=== PATIENT | female | born 1990 | race Caucasian/White ===

== ENCOUNTER 2018-01-20 16:52 | Inpatient (IN) | payer OTHER ==
--- NOTE | 2018-01-20 17:05 | EDPHY ---
H & P Stated Complaint: pt has blood clot in liver/months of abd pain nausea Time Seen by Provider: 01/20/18 16:54 HPI/ROS: CHIEF COMPLAINT: Acute on chronic abdominal pain HISTORY OF PRESENT ILLNESS: The patient presents the ED with complaints of several months of abdominal pain. The patient saw her primary care provider who ordered a CT scan which demonstrated thrombus throughout the left portal system. The case was briefly discussed with the oncologist who recommended the patient be anticoagulated with some consideration for in-patient hospitalization. The patient reports that her pain is acutely worsened over past week. She is having quite a bit of postprandial pain. She reports associated nausea. She denies prior history of PE or DVT. The patient is currently on control pills. She does not smoke. REVIEW OF SYSTEMS: A comprehensive 10 point review of systems is otherwise negative aside from elements mentioned in the history of present illness. Source: Patient Exam Limitations: No limitations - Personal History LMP (Females 10-55): 8-14 Days Ago Current Tetanus/Diphtheria Vaccine: Yes Tetanus Vaccine Date: 2014 - Medical/Surgical History Hx Asthma: No Hx Chronic Respiratory Disease: No Hx Diabetes: No Hx Cardiac Disease: No Hx Renal Disease: No Hx Cirrhosis: No Hx Alcoholism: No Hx HIV/AIDS: No Hx Splenectomy or Spleen Trauma: No Other PMH: fibroadenoma, R knee surgery - Social History Smoking Status: Never smoked - Physical Exam Exam: General Appearance: Alert, no distress Eyes: Pupils equal and round no pallor or injection ENT, Mouth: Mucous membranes moist Respiratory: There are no retractions, lungs are clear to auscultation Cardiovascular: Regular rate and rhythm Gastrointestinal: Abdomen is soft and nontender, no masses, bowel sounds normal Neurological: 5/5 strength all 4 extremities Skin: Warm and dry, no rashes Musculoskeletal: Neck is supple nontender Extremities: symmetrical, full range of motion Constitutional: Initial Vital Signs Temperature (C) 37.3 C 01/20/18 16:57 Heart Rate 99 01/20/18 16:57 Respiratory Rate 18 01/20/18 16:57 Blood Pressure 142/94 H 01/20/18 16:57 O2 Sat (%) 96 01/20/18 16:57 O2 Delivery Mode Room Air Allergies/Adverse Reactions: No Known Allergies Allergy (Verified 01/20/18 16:55) Home Medications: Medication Instructions Recorded Cholecalciferol Vit D3 [Vitamin D3 4,000 units PO DAILY 01/20/18 (*)] Desogestrel-Ethinyl Estradiol 1 tab PO HS 01/20/18 [Apri 28 Day Tablet] Levothyroxine [Synthroid 50 mcg 50 mcg PO DAILY06 01/20/18 (*)] Prazosin HCl [Minipress 5mg (*)] 10 mg PO HS PRN 01/20/18 Ziprasidone HCl [Geodon 40MG (*)] 40 mg PO HS 01/20/18 lamoTRIgine [Lamotrigine] 150 mg PO DAILY 01/20/18 Medical Decision Making - Diagnostics Imaging Results: Patient: LORENE HERRERA Report: ABDOMEN/PELVIS CT WITH CONTRAST Report ID: [id number] Report Date: 01/20/2018 REFERRING PHYSICIAN: Vicky Flynn DO EXAMINATION: ABDOMEN/PELVIS CT WITH CONTRAST, 01/20/2018 2:49 PM CLINICAL INDICATION: Abdominal pain COMPARISON: None. TECHNIQUE: Helical CT sections were made at 3 mm collimation and reconstruction intervals through the abdomen and pelvis with Omnipaque 300, 125 mL IV. (25 mL wasted). No oral contrast administered. All CT scans at this location are performed using dose optimization techniques as appropriate to a performed exam to include one of the following: automated exposure control, or adjustment of the mA according to patient size (this includes techniques or standardized protocols for targeted exams where dose is matched to indicate/reason for exam; i.e. extremities or head.) FINDINGS: Base of the chest: Heart is not enlarged. Lung bases are clear. Liver: Thrombus throughout the left portal vein extending to the origin. Uniformly increased density in the left hepatic lobe related to perfusion asymmetry. Liver is mildly enlarged, 21 cm in maximum dimension. Gallbladder: Normal gallbladder. Bile ducts: Intrahepatic and extrahepatic bile ducts are nondilated. Pancreas: No focal pancreatic parenchymal abnormality. Spleen: Small splenules. Adrenals: No adrenal masses. Kidneys and ureters: Symmetric renal enhancement. No focal mass, radiopaque calculus, or hydronephrosis. Gastrointestinal tract: No bowel wall thickening or surrounding inflammation. No evidence of small bowel obstruction. Normal appendix. Lymph nodes: No pathologically enlarged mesenteric or retroperitoneal lymph nodes. Peritoneum: Trace free fluid, likely physiologic in this age group. Vessels: Vessels are patent. Nonaneurysmal abdominal aorta. Bladder: Urinary bladder is well distended without wall thickening. Reproductive organs: 1.7 cm presumed right corpus luteum cyst. 1.7 cm presumed posterior uterine body fibroid. Osseous structures: No acute osseous abnormality or suspicious osseous lesion. IMPRESSION: 1. Thrombus involving the entire left portal venous system extending to the origin with periportal edema. Hypercoagulable workup recommended. ED Course/Re-evaluation: I reviewed the results of the patient's outpatient CT scan. A hypercoagulable panel has been sent. The patient's primary care provider informs me that the oncologist recommended inpatient admission. The patient has been started on IV heparin. Consultation was made with Dr. Weston from the hospitalist service who will admit the patient to the hospital this evening. I re-evaluated the patient at 7:00 p.m.. She is in no acute distress and comfortable with the plan for hospitalization. Differential Diagnosis: Differential diagnosis considered includes perforation, obstruction, dehydration , hypercoagulable state, venous thrombosis - Data Points Laboratory Results: 01/20/18 01/20/18 17:47 17:47 PT 14.1 SEC SEC (12.0-15.0) INR 1.07 (0.83-1.16) APTT 25.1 SEC SEC (23.0-38.0) Fibrinogen 480 mg/dL H mg/dL (214-456) D-Dimer 0.90 ug/mLFEU H ug/mLFEU (0.00-0.50) Protein C Activity Pending Protein S Activity Pending Antithrombin III Activ Pending Factor V Leiden Mutat Pending Factor V Leiden Interp Pending Fact V Leiden Review By Pending Anti-Cardiolipin IgG Ab Pending Anti-Cardiolipin IgM Ab Pending Departure - Departure Disposition: [facility] Inpatient Acute Clinical Impression: Portal vein thrombosis Abdominal pain Qualifiers: Abdominal location: epigastric Qualified Code(s): R10.13 - Epigastric pain Condition: Good Referrals: VICKY FLYNN [Primary Care Provider] - As per Instructions
[2018-01-20 18:24] LABS: INR 1.07 (0.83-1.16); PROTIME(PATIENT) 14.1 SEC (12.0-15.0)
[2018-01-20] MEDS ORDERED: HEPARIN 10,000 UNIT/10 ML MDV (1,000 UNIT/ML) IVP ONE ×2 (18:43→21:41)
[2018-01-20] MEDS ORDERED: HEPARIN/DEXTROSE 500 ML IV ONE (18:43)
[2018-01-20] MEDS ORDERED: HYDROmorphONE/DILAUDID 2 MG/ML INJ IVP ONE (19:35)
[2018-01-20] MEDS ORDERED: ACETAMINOPHEN 325 MG TAB PO PRN (21:38)
[2018-01-20] MEDS ORDERED: HEPARIN 10,000 UNIT/10 ML MDV (1,000 UNIT/ML) IVP PRN (21:41)
[2018-01-20] MEDS: PROMETHAZINE HCL 25 MG/ML INJ IVP PRN (22:09)
[2018-01-20] MEDS ORDERED: PRAZOSIN HCL 5 MG CAP PO PRN (22:27)
[2018-01-20] MEDS: oxyCODONE IR 5 MG TAB PO PRN (22:55)
[2018-01-20 22:56] LABS: PLATELET COUNT 218 10^3/uL (150-400)
[2018-01-20 23:04] LABS: INR 1.17 (0.83-1.16); PROTIME(PATIENT) 15.1 SEC (12.0-15.0)
--- NOTE | 2018-01-20 23:09 | GHP ---
[f rep st] HISTORY AND PHYSICAL DATE OF ADMISSION: 01/20/2018 PRIMARY CARE PROVIDER: Cesar Mcgill DO. CHIEF COMPLAINT: Abdominal pain. HISTORY OF PRESENT ILLNESS: The patient is a pleasant 28-year-old female with a past medical history of PTSD and hypothyroidism who has been having abdominal discomfort over the past 2-3 months. She c onsulted with her primary provider, Dr. Cesar Mcgill, and a CT scan was ordered. This reportedly raeann wed thrombus throughout the left portal system. By report, Dr. Mcgill verbally discussed the case with Oncology who recommended the patient be anticoagulated with consideration of inpatient hospitalizati on. The patient states she has lost about 10 pounds over the prior 2-3 months due to her low oral intake as she has had nausea and vomiting associated with oral intake. I do not have her ultrasound report in our [facility] system. In the emergency room, she was started on hep marietta drip. A hypercoagulable workup had already previously been ordered. She was on oral contracept fariba which have been stopped at this time. PAST MEDICAL HISTORY: 1. Posttraumatic stress disorder. 2. Hypothyroidism. 3. Night terrors. PAST SURGICAL HISTORY: Right knee surgery. MEDICATIONS: This medication list is taken from her ambulatory order list. 1. Lamictal 150 mg daily. 2. Geodon 40 mg nightly. 3. Levothyroxine 50 mcg daily. 4. Apri 28. 5. Prazosin 10 mg nightly as needed for night terrors. ALLERGIES: No known drug allergies. FAMILY HISTORY: No known family history of recurrent thrombosis. SOCIAL HISTORY: Patient is a nonsmoker. She is currently without any children. REVIEW OF SYSTEMS: CONSTITUTIONAL: No complaints of any fevers or chills. ENT: No recent upper re spiratory illnesses. CARDIOVASCULAR: No complaints of chest pains or palpitations. RESPIRATORY: N o complaints of shortness of breath or productive cough. GI: Positive for epigastric tenderness, pa rticularly with oral intake. : No report of any difficulty with urination. NEUROLOGIC: No compl aints of headaches or focal weakness. HEMATOLOGIC: No history of deep vein thrombosis or pulmonary embolism. PSYCHIATRIC: Positive for PTSD. ENDOCRINE: History of hypothyroidism. No diabetes hist ory. SKIN: No new skin rashes noted. MUSCULOSKELETAL: No focal joint pains. PHYSICAL EXAMINATION: VITAL SIGNS: Temperature 36.9, blood pressure 122/85, heart rate 70, respirat ions 18, saturating 96% on room air. GENERAL: Patient appears comfortable. She is awake, alert, co nversant. No acute distress. HEENT: Extraocular movements appear intact. No scleral icterus is no bogdan. NECK: Supple. No adenopathy. No thyroid enlargement noted. CHEST: Clear to auscultation wi th normal respiratory effort. HEART: Regular rate and rhythm and rhythm. No murmurs. ABDOMEN: Te nder with palpation at the epigastrium, otherwise nondistended. Normal bowel sounds. : No Johnson catheter in place. EXTREMITIES: No significant pitting edema. MUSCULOSKELETAL: No calf pain with palpation. NEUROLOGIC: Cranial nerves 2-12 appear grossly intact. Strength 5/5 in all extremities. LABORATORY DATA: White blood cell count of 7, hemoglobin 13, platelets 243. INR 1.0, PTT 25. ASSESSMENT AND PLAN: 1. Portal vein thrombosis. Patient has been started on heparin. Will need to clarify where this im aging study was performed as I do not have access to results currently. A hypercoagulable workup has been ordered and obtained. Consider either outpatient or inpatient hematology/oncology consultation . 2. Abdominal pain. Will check a lipase with morning labs to evaluate for potential other etiologies . Will also obtain a right upper quadrant ultrasound to evaluate for cholelithiasis. 3. Posttraumatic stress disorder. Continue with current Lamictal, Geodon, and prazosin nightly as n eeded for her night terrors. 4. Hypothyroidism. Continue levothyroxine. DISPOSITION: Will admit her under observation status for now pending further workup. /[id number]/MODL
[2018-01-21 05:11] LABS: PLATELET COUNT 218 10^3/uL (150-400)
[2018-01-21] MEDS: oxyCODONE IR 5 MG TAB PO PRN ×5 (05:51→22:10)
[2018-01-21] MEDS: LEVOTHYROXINE 50 MCG TAB PO SCH (05:51)
[2018-01-21] MEDS: PROMETHAZINE HCL 25 MG/ML INJ IVP PRN ×2 (05:55→13:58)
[2018-01-21] MEDS: CHOLECALCIFEROL VIT D3 1,000 UNITS TAB PO SCH (10:03)
[2018-01-21] MEDS: lamoTRIgine 100 MG TAB PO SCH (10:03)
--- NOTE | 2018-01-21 11:09 | ASMTCASEMG ---
Living Arrangements What is your living Answers: With Spouse arrangement? Who do you live with? Type Of Residence What kind of residence do Answers: House you live in? Discharge Plan Comments Coordination Status Comments Notes: Pt is a 28 y/o female admitted for abdominal pain. CM met w/ pt for dispo planning. Pt reports that she has been unable to eat due to the abdominal pain. CM and pt discussed her PTSD. Pt reports that she sees a therapist on a weekly basis. Pt discussed mindfulness techniques. CM provided pt w/ PTSD readings/resources. Pt will most likely d/c independent when medically stable. No therapies ordered at this time. CM available for changes. Plan: Independent Date Signed: 01/21/2018 11:08 AM Electronically Signed By:CÉSAR Rankin
--- NOTE | 2018-01-21 14:21 | HOSPPROG ---
Hospitalist Progress Note Assessment/Plan: 28 yo F with on significant PMH presenting with abdominal pain and found to have PVT (initially diagnosed by CT scan at her PCP) # PvT: with only risk factor being OCPs, hypercoagulable w/u sent and is pending. Oncology consulted. Suspect she will require at least 6 months of AC and this was discussed with the patient, also explained that if hypercoag w/u is positive she may require longer even life long therapy. Continue heparin gtt for now, appreciate onc consult for transition to oral. # abdominal pain: continues, not able to take much by mouth, , pain controlled on current regimen # PTSD/night terrors: continue prazosin, lamotrigine, geodon # hypothyroid: continue lt4 # IP status, will need > 48 hours stay for eval/mgmt of above Care plan reviewed with patients present at bedside as well as mother in law over the phone Subjective: no significant overnight evetns, patient continues to have abdominal pain and is not passing gas, not tolerating anything other than clear liquids Objective: Vital Signs Temp Pulse Resp BP Pulse Ox 36.9 C 79 16 115/85 H 94 01/21/18 11:12 01/21/18 11:12 01/21/18 11:12 01/21/18 11:12 01/21/18 11:12 Laboratory Results 01/21/18 04:40 01/21/18 04:40 01/20/18 01/21/18 01/22/18 05:59 05:59 05:59 Intake Total 451 Output Total 500 Balance -49 PT 15.1 SEC (12.0-15.0) H 01/20/18 22:48 INR 1.17 (0.83-1.16) H 01/20/18 22:48 awake alert anicteric op clear rrr no mrg cta b soft ttp diffusely, dec bs no cce warm dry well perfused oriented appropriate - Time Spent With Patient Time Spent with Patient: greater than 35 minutes Time Spent with Patient: Greater than 35 minutes spent on this patients care, greater than 50% of time spent counseling, educating, and coordinating care regarding the above mentioned plan. ICD10 Worksheet Patient Problems: Problems Problem Status Onset Portal vein thrombosis Acute Abdominal pain Acute
--- NOTE | 2018-01-21 14:31 | GCON ---
[f rep st] CONSULTATION HISTORY OF PRESENTING ILLNESS: The patient is a very pleasant 28-year-old female who has had some mi d epigastric pain over the last couple of months. It has progressed and it was particularly worse wi th eating, and she found difficulty in taking in adequate amount of calories and has lost about 10 po unds. She saw her primary care provider, Dr. Mcgill, and a CT scan was ordered. This was done at [facility] and I do not have the exact report, but it apparently showed clot throughout the left portal v enous system. She came to the emergency room and was admitted. An ultrasound in the ER last night s howed intraluminal thrombus identified in the left portal vein. Liver was mildly enlarged at 20.8 cm . No gallstones were noted. She was admitted and placed on IV heparin. She is feeling a bit better today, but is taking oxycodone. PAST MEDICAL HISTORY: Significant for posttraumatic stress disorder, hypothyroidism, and night terro rs. She is status post right knee surgery. MEDICATIONS: Include Lamictal, Geodon, levothyroxine, prazosin and control pills, which she gallo s since discontinued. FAMILY HISTORY: There is no family history of thrombosis. SOCIAL HISTORY: She is accompanied by her [id number] and . She is a nonsmoker. REVIEW OF SYSTEMS: Negative except as discussed in the HPI for 10 systems. PHYSICAL EXAMINATION: Today, she is a thin, alert female in no acute distress. VITAL SIGNS: Blood pressure is 115/85. She is afebrile. Pulse is 79. HEENT: She is not icteric. LYMPHATICS: I dete ct no cervical, supraclavicular, or axillary adenopathy. LUNGS: Clear to auscultation and percussio n. CARDIAC: Normal S1, S2 without murmurs, clicks, or added sounds. ABDOMEN: Normal bowel sounds. She is tender in her mid epigastrium and to a lesser extent in her right upper quadrant. EXTREMITI ES: No edema. Legs are unremarkable. NEUROLOGIC: She is anxious, but neurologic exam is otherwise nonfocal. LABORATORY: White count of 6.4, hemoglobin 12.6, hematocrit 37, platelets are 218,000. Basic chemis try panel shows unremarkable kidney function, electrolytes. Liver function tests were normal as of . IMPRESSION: Patient presenting with a portal vein thrombosis. Risk factor would include oral contra ceptive use, which she had been on for about 8 years. I agree with recommendation for anticoagulatio n, and I think intravenous heparin at least at this time is reasonable. I think we could transition her to an oral anticoagulant. I think one of the novel anticoagulants would be reasonable. There is data that these can be effective in the treatment of portal vein thrombosis, there is some concern i n using those in patients with underlying cirrhosis, but this is not the case in this patient. I thi nk it would be reasonable to continue her on the intravenous heparin for the next day or so, before m aking that transition. I would recommend probably 6 months on anticoagulation but probably re-image her with CT and/or ultrasound in 2-3 months to see if we are making any headway in terms of recanaliz ation of the portal vein, which would be desirable in order to prevent long-term complications such a s portal hypertension. Family has concerns about her nutritional status. I think it would be best to treat her conservative ly and hope that with resolution of the clot, her appetite will improve. I am going to check a JAK2 mutation as well as a prothrombin gene mutation. Protein C, S, antithrombin 3, factor 5 Leiden mutat ion are pending, as are anticardiolipin antibodies. I believe we should regard this as a provoked cl ot related to her oral contraceptives and do not think she will need lifelong anticoagulation. Our adithya jordan will follow with you. /[id number]/MODL
--- NOTE | 2018-01-21 15:24 | PDMN ---
Medical Necessity Medical necessity: [facility] gastroenterology - I81 2 days: Portal vein thrombosis req IV heparin further monitoring and tx.
[2018-01-21] MEDS: HEPARIN/DEXTROSE 500 ML IV SCH (15:51)
[2018-01-21] MEDS: ZIPRASIDONE HCL 40 MG CAP PO SCH (22:10)
[2018-01-22] MEDS: oxyCODONE IR 5 MG TAB PO PRN ×6 (04:59→22:33)
[2018-01-22] MEDS: LEVOTHYROXINE 50 MCG TAB PO SCH (04:59)
[2018-01-22 05:45] LABS: PLATELET COUNT 233 10^3/uL (150-400)
[2018-01-22] MEDS: lamoTRIgine 100 MG TAB PO SCH (07:52)
[2018-01-22] MEDS: PROMETHAZINE HCL 25 MG/ML INJ IVP PRN (07:52)
[2018-01-22] MEDS: CHOLECALCIFEROL VIT D3 1,000 UNITS TAB PO SCH (07:52)
[2018-01-22] MEDS: HEPARIN/DEXTROSE 500 ML IV SCH (09:26)
[2018-01-22] MEDS ORDERED: MAGNESIUM HYDROXIDE 30 ML UDCUP PO PRN (11:02)
[2018-01-22] MEDS ORDERED: BISACODYL 10 MG SUPP PR PRN (11:02)
[2018-01-22] MEDS ORDERED: POLYETHYLENE GLYCOL 3350 17 GM PKT PO PRN (11:02)
[2018-01-22] MEDS ORDERED: LACTULOSE 20 GM/30 ML UDCUP PO PRN (11:02)
--- NOTE | 2018-01-22 11:07 | HOSPPROG ---
Hospitalist Progress Note Assessment/Plan: New pt encounter 28 yo F with on significant PMH presenting with abdominal pain and found to have PVT (initially diagnosed by CT scan at her PCP) # PvT: with only risk factor being OCPs, hypercoagulable w/u sent and is pending. -Oncology consulted: Dr. Charles's note reviewed -she will require at least 6 months of AC and this was discussed with the patient, also explained that if hypercoag w/u is positive she may require longer even life long therapy. -Continue heparin gtt for now, Onc will likely transition to oral agent today or tomorrow -will need abd ct vs US in 2-3 months # abdominal pain: -improving -PO intake is better #Nausea: cont antiemetics as needed #Weight loss: manage conservatively #constipation: start bowel protocol # PTSD/night terrors: continue prazosin, lamotrigine, geodon # hypothyroid: continue lt4 # IP status, will need > 48 hours stay for eval/mgmt of above -can likely d/c soon possibly tomorrow Care plan reviewed with patients present at bedside as well as mother in law over the phone D/W the pt, her , and nurse at bedside. Subjective: still with some abd pain. mild nausea but improving. oral intake is improving as well. Objective: Vital Signs Temp Pulse Resp BP Pulse Ox 37.0 C 63 15 123/83 H 97 01/22/18 07:53 01/22/18 07:53 01/22/18 07:53 01/22/18 07:53 01/22/18 07:53 Laboratory Results 01/22/18 04:46 01/22/18 04:46 01/21/18 01/22/18 01/23/18 05:59 05:59 05:59 Intake Total 451 300 Output Total 500 950 Balance -49 -650 PT 15.1 SEC (12.0-15.0) H 01/20/18 22:48 INR 1.17 (0.83-1.16) H 01/20/18 22:48 - Physical Exam Constitutional: no apparent distress Eyes: PERRL, EOMI Ears, Nose, Mouth, Throat: moist mucous membranes, hearing normal, ears appear normal Cardiovascular: regular rate and rhythym, No edema Respiratory: no respiratory distress, no rales or rhonchi Gastrointestinal: normoactive bowel sounds, soft, non-tender abdomen Genitourinary: no bladder fullness Skin: warm Neurologic: AAOx3 Psychiatric: interacting appropriately, not anxious, not encephalopathic ICD10 Worksheet Patient Problems: Problems Problem Status Onset Abdominal pain Acute Portal vein thrombosis Acute
--- NOTE | 2018-01-22 12:46 | SOAPPROG ---
ESTEFANÍA Progress Note Assessment/Plan: Assessment: 1. portal vein thrombosis 2. abdominal pain, a bit better still taking pain meds, tolerating smoothie ok 3. anorexia Plan:continue heparin today, transition to oral anticoagulant tomorrow 01/22/18 12:43 Subjective: Still some abd pain, may be a bit better Objective: Vital Signs Temp Pulse Resp BP Pulse Ox 98.8 F 74 15 113/80 96 01/22/18 11:39 01/22/18 11:39 01/22/18 11:39 01/22/18 11:39 01/22/18 11:39 Laboratory Results 01/22/18 04:46 01/22/18 04:46 01/21/18 01/22/18 01/23/18 05:59 05:59 05:59 Intake Total 451 300 Output Total 500 950 Balance -49 -650 PT 15.1 SEC (12.0-15.0) H 01/20/18 22:48 INR 1.17 (0.83-1.16) H 01/20/18 22:48 Physical Exam - Physical Exam General Appearance: alert, no apparent distress Respiratory: lungs clear, normal breath sounds Cardiac/Chest: regular rate, rhythm Abdomen: normal bowel sounds, No non-tender (sl tender mid epigastrium) ICD10 Worksheet Patient Problems: Problems Problem Status Onset Abdominal pain Acute Portal vein thrombosis Acute
[2018-01-22] MEDS: ZIPRASIDONE HCL 40 MG CAP PO SCH (20:20)
[2018-01-22] MEDS: SENNOSIDES/DOCUSATE SODIUM TAB PO SCH (20:21)
[2018-01-23] MEDS: LEVOTHYROXINE 50 MCG TAB PO SCH (04:48)
[2018-01-23] MEDS: oxyCODONE IR 5 MG TAB PO PRN ×4 (04:48→15:18)
[2018-01-23] MEDS: HEPARIN/DEXTROSE 500 ML IV SCH (04:49)
[2018-01-23 04:57] LABS: PLATELET COUNT 280 10^3/uL (150-400)
[2018-01-23 07:22] VITALS: BP 112/84
[2018-01-23] MEDS: PROMETHAZINE HCL 25 MG/ML INJ IVP PRN (08:12)
[2018-01-23] MEDS: CHOLECALCIFEROL VIT D3 1,000 UNITS TAB PO SCH (08:16)
[2018-01-23] MEDS: SENNOSIDES/DOCUSATE SODIUM TAB PO SCH (08:16)
[2018-01-23] MEDS: lamoTRIgine 100 MG TAB PO SCH (08:17)
--- NOTE | 2018-01-23 11:14 | SOAPPROG ---
SOAP Progress Note Assessment/Plan: Assessment: 1. portal vein thrombosis 2. abdominal pain, she is tolerating food better still some pain 3. anorexia Plan:Stop heparin, start xarelto, possibly home 01/22/18 12:43 01/23/18 11:12 Subjective: Feels better Objective: Vital Signs Temp Pulse Resp BP Pulse Ox 98.6 F 80 12 112/84 H 95 01/23/18 07:21 01/23/18 07:21 01/23/18 07:21 01/23/18 07:21 01/23/18 07:21 Laboratory Results 01/23/18 04:26 01/22/18 04:46 01/22/18 01/23/18 01/24/18 05:59 05:59 05:59 Intake Total 300 Output Total 950 Balance -650 PT 15.1 SEC (12.0-15.0) H 01/20/18 22:48 INR 1.17 (0.83-1.16) H 01/20/18 22:48 Physical Exam - Physical Exam General Appearance: alert, no apparent distress Respiratory: normal breath sounds Cardiac/Chest: regular rate, rhythm Abdomen: normal bowel sounds, non-tender ICD10 Worksheet Patient Problems: Problems Problem Status Onset Abdominal pain Acute Portal vein thrombosis Acute
[2018-01-23] MEDS ORDERED: RIVAROXABAN 15 MG TAB PO SCH (12:00)
--- NOTE | 2018-01-23 12:31 | PDDCSUM ---
Discharge Summary Discharge Summary: 28 yo F with on significant PMH presenting with abdominal pain and found to have PVT (initially diagnosed by CT scan at her PCP). US her showed intraluminal thrombus of left portal vein. She was treated with Heparin from to 12/24 and then changed to Xarelto 15mg BID. She will get a script for this dose for 21 days and then will need to switch to the 20mg dose. This can be managed by either her PCP or Dr. Charles. As for etiology, it is unclear, but likely due to oral contraceptives. No e/o of mass or malignancy was reported. She will f/u with Dr. Charles. Hypercoag w/u is pending. She will need AC for [address] in 2 months Consultants: Dr. Kacey Charles The pt, nurse, and I had a discussion about starting Xarelto and pros and cons of doing so. We discussed that there is a higher incidence of bleeding including GI and brain bleeds. We also discussed the benefit of continuing anticoagulation given her PVT. Ultimately, she had decided that it is in her best interest to continue with Xarelto and accepts all risks. She will f/u with her PCP next week and with Dr. Charles in 2 weeks DDX: # PvT: with only risk factor being OCPs, hypercoagulable w/u sent and is pending. -Oncology consulted: Dr. Charles's note reviewed -she will require at least 6 months of AC and this was discussed with the patient, also explained that if hypercoag w/u is positive she may require longer even life long therapy. -Continue heparin gtt for now, Onc will likely transition to oral agent today or tomorrow -will need abd ct vs US in 2-3 months # abdominal pain: -improving -PO intake is better #Nausea: cont antiemetics as needed. will start protonix #Weight loss: manage conservatively #constipation: start bowel protocol # PTSD/night terrors: continue prazosin, lamotrigine, geodon # hypothyroid: continue lt4 Exam: NAD AAOX3 RRR CTAB S/NT/ND NO LE EDEMA MEDS: SEE MED REC. XARELTO, ZOFRAN, PROTONIX STARTED TOTAL TIME SPENT ON D/C INCLUDING DISCUSSION WITH PT AND NURSE IS 40 MINS.
== END 2018-01-23 16:10 | disposition home or self-care (01) | DRG 443 ==
LOC: OBSVTOIN 18:46 → F3E 21:31
PROVIDERS: ADMIT Internal Medicine; ATTEND Family Medicine
DX: I81 Portal vein thrombosis (principal); F43.10 Post-traumatic stress disorder, unspecified; F51.4 Sleep terrors [night terrors]; E03.9 Hypothyroidism, unspecified; K59.00 Constipation, unspecified
CPT/HCPCS: 81439-90; 85300-90; 85303-90; 85306-90; 85520-90; 86147-90; 96365; 96366; G0378; J1170; J1644; J2550

== ENCOUNTER → 2018-03-12 | Outpatient (CLI) | payer OTHER | LOC: FIMAGING 07:26 | PROVIDERS: ATTEND Internal Medicine Hematology & Oncology | DX: I81 Portal vein thrombosis (principal) ==

== ENCOUNTER → 2018-06-09 | Outpatient (CLI) | payer OTHER ==
[~2018-06-09] MED LIST: BUPIVACAINE 0.5% 30 ML SDV ONE; LIDOCAINE 1% 300 MG/30 ML SDV ONE; THROMBIN (BOVINE) 5,000 UNIT VIAL TP ONE
== END ==
LOC: FIMAGING 07:23
PROVIDERS: ATTEND Internal Medicine Hematology & Oncology
PROC: 0HBU3ZX Excision of Left Breast, Percutaneous Approach, Diagnostic (ICD-10-PCS; principal; 2018-06-09)
DX: D24.2 Benign neoplasm of left breast (principal); Z80.3 Family history of malignant neoplasm of breast

== ENCOUNTER → 2018-07-15 | Outpatient (CLI) | payer OTHER | LOC: FIMAGING 14:43 | PROVIDERS: ATTEND Internal Medicine Hematology & Oncology | DX: I81 Portal vein thrombosis (principal) ==

== ENCOUNTER → 2018-07-24 | Outpatient (CLI) | payer OTHER | LOC: FIMAGING 12:03 | PROVIDERS: ATTEND Internal Medicine Hematology & Oncology | DX: R11.0 Nausea (principal) | CPT/HCPCS: A9537 ==

== ENCOUNTER → 2018-11-26 | Outpatient (CLI) | payer OTHER | LOC: FIMAGING 09:17 | PROVIDERS: ATTEND Internal Medicine Hematology & Oncology | DX: R11.2 Nausea with vomiting, unspecified (principal); I81 Portal vein thrombosis ==